=== PATIENT | male | born 2000 | race Hispanic/Latino ===

== ENCOUNTER 2020-09-08 17:47 | Emergency (ER) | payer OTHER, SELFPAY ==
[2020-09-08 17:50] VITALS: BP 137/96; PULSE 68; RESP 18; TEMP 36.3; O2SAT 99
[2020-09-08 19:40] VITALS: BP 125/87; PULSE 88; RESP 18; TEMP 36.4; O2SAT 96
--- NOTE | 2020-09-08 19:56 | ED.GENADULT ---
HPI - General Adult General Chief complaint: Unspecified Stated complaint: hard to swollow/ redness in throat x2 days Time Seen by Provider: 09/08/20 17:58 Source: patient Mode of arrival: ambulatory Limitations: no limitations History of Present Illness HPI narrative: Patient is a 19 year old male who presents complaining of sore throat and pain with swallowing x 2-3 days. He denies fever and chills, reports generalized intermittent body aches. He reports he is not Covid vaccinated. He denies known exposure to Covid but does work outside of home. He denies taking otc medications for pain or discomfort. MD complaint: sore throat Related Data Allergies Allergy/AdvReac Type Severity Reaction Status Date / Time No Known Allergies Allergy Verified 01/30/13 17:32 Review of Systems Review of Systems: Narrative: CONSTITUTIONAL: Denies fever, chills, or sweats. EYES: Denies visual changes, redness, or discharge. ENT: Reports sore throat and pain with swallowing CARDIOVASCULAR: Denies chest pain, palpitations, or edema. RESPIRATORY: Denies cough or dyspnea. GASTROINTESTINAL: Denies abdominal pain, nausea, vomiting, or diarrhea. GENITOURINARY: Denies dysuria or hematuria. SKIN: Denies rash or itching. MUSCULOSKELETAL: Denies back pain, joint pain, or myalgia. NEUROLOGIC: Denies headache, numbness, dizziness, or weakness. PSYCHIATRIC: Denies anxiety or depression. [facility] Past Medical History Medical History No significant past medical history Surgical History Surgical History No significant past surgical history Family History Family History (Updated 09/08/20 @ 20:00 by ALEX Gamino) Other No significant family history Social History Social History (Updated 09/08/20 @ 20:01 by ALEX Gamino) Smoking status: Never smoker Alcohol intake: never Substance use: never Living arrangements: with family Occupation/Education: occupation Comments At the time of signature, I have reviewed and agree with nursing past medical, surgical, social, and family history unless otherwise noted. Please see nursing chart for further information. There is no relevant family history pertinent to the presenting complaint. Exam Narrative: Exam Narrative: GENERAL: Well-appearing, well-nourished, and in no acute distress. HEAD: Normocephalic, atraumatic. EYES: EOMI. No redness or drainage. Conjunctiva are normal. ENT: Mucous membranes pink and moist. Nares clear. No rhinorrhea. TMs normal bilaterally. Throat mild erythema and edema. Uvula midline. NECK: AROM. Supple. No lymphadenopathy. CHEST: No respiratory distress. Clear to auscultation. HEART: Regular rate and rhythm. No murmur appreciated. Normal peripheral pulses. GI: Soft, nontender without rebound, or guarding. No distention. Bowel sounds normal in all quadrants. MUSCULOSKELETAL: No bony tenderness. EXTREMITIES: Normal range of motion. No edema. SKIN: Warm, dry, no rash. NEURO: No focal deficits. Alert and oriented x3. Gait steady. PSYCH: Normal affect. No signs of depression or anxiety. Course Vital Signs Vital signs: Vital Signs Temperature 36.3 C L 09/08/20 17:50 Pulse Rate 68 09/08/20 17:50 Respiratory Rate 18 09/08/20 17:50 Blood Pressure 137/96 H 09/08/20 17:50 Pulse Oximetry 99 09/08/20 17:50 Temperature 36.4 C 09/08/20 19:40 Pulse Rate 88 09/08/20 19:40 Respiratory Rate 18 09/08/20 19:40 Blood Pressure 125/87 09/08/20 19:40 Pulse Oximetry 96 09/08/20 19:40 Reviewed. Patient has been instructed to follow-up with his PCP regarding his blood pressure. Medical Decision Making MDM Narrative Medical decision making narrative: Rapid strep negative. Patient was to be checked for mono, however, he does not want to wait longer at this time. Patient also tested for Covid at this time. Patient c
[2020-09-08 22:02] LABS: Monoscreen Negative (Negative)
[2020-09-08 22:03] LABS: Negative Monotest Control Negative (Negative); Positive Monotest Control Positive (Positive)
[2020-09-09 16:57] LABS: SARS-CoV-2 RNA PCR Negative
== END 2020-09-08 21:58 | disposition home or self-care (01) ==
PROVIDERS: Emergency Provider Nurse Practitioner; PCP Registered Nurse
DX: J02.9 Acute pharyngitis, unspecified (principal); Z20.822 Contact with and (suspected) exposure to COVID-19
CPT/HCPCS: 36415; 86308; 87081; 87147; 87880; 99283; C9803; U0003; U0005

== ENCOUNTER 2020-09-10 22:14 | Emergency (ER) | payer OTHER, SELFPAY ==
[2020-09-10 22:41] VITALS: BP 129/62; PULSE 93; RESP 18; TEMP 36.9; O2SAT 99
--- NOTE | 2020-09-10 23:55 | PC.NURSE ---
Addendum entered by Beatriz Varma RN 09/11/20 00:04: throat culture resulted positive strep. Original Note: Pt to room 6 from .pt seen here 2 days ago for sore throat. arrived tonight with ems for same complaint. pt reports trouble swallowing earlier today. Presently, pt able to manage oral secretions without difficulty. no drooling. voice clear and not hoarse/muffled. a/o x 4. placed in gown, awaiting ED provider.
--- NOTE | 2020-09-11 00:35 | ED.GENADULT ---
HPI - General Adult General Chief complaint: Unspecified Stated complaint: my throat feels like it is clogging up Time Seen by Provider: 09/11/20 00:24 History of Present Illness HPI narrative: 19 yo male with no significant PMH presents to the ED for a sore throat. He reports that he has had swelling in his throat for the past few days and was initially having a significant sore throat as well. He was seen here 2 days ago and had a negative rapid strep and MONO test. He also had COVID test sent, which has since come back negative. He came back in tonight because he feels that he is having progressive difficulty swallowing. No SOB, fever, cough, chest pain. On chart review his strep culture was positive. Related Data Allergies Allergy/AdvReac Type Severity Reaction Status Date / Time No Known Allergies Allergy Verified 09/08/20 21:43 Review of Systems Review of Systems: All systems reviewed & are unremarkable except as noted in HPI and below PMFSH Past Medical History Medical History No significant past medical history Surgical History Surgical History No significant past surgical history Family History Family History Other No significant family history Social History Social History Smoking status: Never smoker Alcohol intake: never Substance use: never Exam Const: General: healthy appearing, no acute distress and alert Nutritional Appearance: obese Orientation/consciousness: patient oriented x3 HENMT: Head: normal to inspection Mouth: Yes Normal oral and palatal mucosa present Teeth and gingiva: dentition normal Throat: uvula midline, abnormal tonsil bilateral hypertrophy and posterior oropharynx abnormal erythema Neck: Neck: lymphadenopathy Resp: Effort & Inspection: normal respiratory effort Auscultation: clear to auscultation bilaterally, no rales, no rhonchi and no wheezes Other: no stridor Cardio: Jugular venous distension: no JVD Rate: regular rate Rhythm: regular rhythm Heart sounds: no murmurs Skin: General skin exam: normal color Neuro: General: patient oriented x3 and moves all extremities Speech: normal speech Extrem: General: no edema Psych: Appearance: well kempt Affect: normal affect Course Vital Signs Vital signs: Vital Signs Temperature 36.9 C 09/10/20 22:41 Pulse Rate 93 09/10/20 22:41 Respiratory Rate 18 09/10/20 22:41 Blood Pressure 129/62 09/10/20 22:41 Pulse Oximetry 99 09/10/20 22:41 Temperature 36.9 C 09/10/20 22:41 Pulse Rate 97 09/11/20 01:20 Respiratory Rate 16 09/11/20 01:20 Blood Pressure 121/80 09/11/20 01:20 Pulse Oximetry 97 09/11/20 01:20 Medical Decision Making MDM Narrative Medical decision making narrative: I will treat for strep and given steroid shot for symptom relief. He is able to swallow pills. Medical Records Medical records reviewed: Yes I reviewed the external patient's medical records. Vital Signs Vital Signs: Vital Signs Temperature 36.9 C 09/10/20 22:41 Pulse Rate 93 09/10/20 22:41 Respiratory Rate 18 09/10/20 22:41 Blood Pressure 129/62 09/10/20 22:41 Pulse Oximetry 99 09/10/20 22:41 Temperature 36.9 C 09/10/20 22:41 Pulse Rate 97 09/11/20 01:20 Respiratory Rate 16 09/11/20 01:20 Blood Pressure 121/80 09/11/20 01:20 Pulse Oximetry 97 09/11/20 01:20 Lab Data Lab results reviewed: Yes I reviewed the patient's lab results. Discharge Plan Discharge Clinical Impression: Acute streptococcal pharyngitis Patient Disposition: Home, Self-Care Condition: Stable Instructions: Antibiotic Form, Strep Throat (ED) Prescriptions: New penicillin V potassium 500 mg tablet 500 mg PO Q12H 10 Days Qty: 20 RF: 0 penici
[2020-09-11 00:36] VITALS: BP 121/84; PULSE 79; RESP 18; O2SAT 96
[2020-09-11] MEDS: PENICILLIN V POTASSIUM 250 MG TABLET 500 MG PO (00:54)
[2020-09-11] MEDS: DEXAMETHASONE SOD PHOS INJ 4 MG/ML VIAL 10 MG IM (00:56)
[2020-09-11] MEDS: KETOROLAC (*BKC) 60 MG/2 ML VIAL IM (01:02)
[2020-09-11 01:20] VITALS: BP 121/80; PULSE 97; RESP 16; O2SAT 97
== END 2020-09-11 01:20 | disposition home or self-care (01) ==
PROVIDERS: Emergency Provider Emergency Medicine; PCP Registered Nurse
DX: J02.0 Streptococcal pharyngitis (principal)
CPT/HCPCS: 96372; 99284; A9270; J1100; J1885

== ENCOUNTER 2020-10-04 02:42 | Emergency (ER) | payer OTHER, SELFPAY ==
--- NOTE | ~2020-10-04 | CT_ITS ---
EXAMINATION: CT soft tissue neck w con DATE: 10/04/2020 04:00 INDICATION: Swelling of the tonsils. Evaluate for abscess. TECHNIQUE: Computed tomography (CT) of the neck was performed with 75 mL Omnipaque-350 intravenous co ntrast. The dose-length product was 572.21 mGy-cm. Automated exposure control and iterative reconstru ction technique were employed. COMPARISON: CT dated 09/08/2017 FINDINGS: Asymmetrically enlarged left palatine tonsil with parenchymal calcification. No evidence fo r abscess. There is mild asymmetric effacement of the oropharynx. No significant surrounding inflamma tion or lymphadenopathy. Visualized intracranial structures are unremarkable. Thyroid gland is unrema rkable. Paranasal sinuses are unremarkable. Surrounding osseous structures within normal limits. Lung apices are normal. There are impacted bilateral mandibular and left posterior maxillary molars. IMPRESSION: 1. Mildly enlarged asymmetric left palatine tonsil containing parenchymal calcification. No evidence for abscess. Reviewed, dictated and finalized at location A. IMPRESSION: 1. Mildly enlarged asymmetric left palatine tonsil containing parenchymal calci fication. No evidence for abscess.
[2020-10-04 02:52] VITALS: BP 143/107; PULSE 88; RESP 18; TEMP 37.1; O2SAT 100
--- NOTE | 2020-10-04 03:05 | ED.GENADULT ---
HPI - General Adult General Chief complaint: Unspecified Stated complaint: sorethroat, getting tonsils removed next week Time Seen by Provider: 10/04/20 02:57 History of Present Illness HPI narrative: Patient 19-year-old gentleman presents emergency department with chief complaint of sore throat. The patient reports that he is scheduled to have his tonsils removed and about a week. Patient states that tonight he noticed that his tonsils felt more swollen and reports that it feels as though there is some swelling in his throat. The patient states that he has not been on steroids recently reports that he has been treated with penicillin that did not resolve his symptoms previously. Related Data Allergies Allergy/AdvReac Type Severity Reaction Status Date / Time No Known Allergies Allergy Verified 10/04/20 03:02 Review of Systems Review of Systems: Narrative: A 10 system review of systems was completed on the patient and is negative except for what is stated in the HPI. Nursing and ancillary documentation was reviewed. PMFSH Past Medical History Medical History No significant past medical history Surgical History Surgical History No significant past surgical history Family History Family History Other No significant family history Social History Social History Smoking status: Never smoker Alcohol intake: never Substance use: never Gender identity (if verbalized by the patient): Male Exam Narrative: Exam Narrative: GENERAL: Well-appearing, well-nourished, and in no acute distress. HEAD: Normocephalic, atraumatic. EYES: PERRLA and EOMI. ENT: Nares clear, no rhinorrhea or epistaxis. Mucous membranes moist. NECK: Supple. CHEST: Clear to auscultation. No respiratory distress. HEART: Regular rate and rhythm. No murmur heard. Normal peripheral pulses. ABDOMEN: Soft, nontender, nondistended, normal active bowel sounds. EXTREMITIES: Normal range of motion. No edema. SKIN: Warm, dry, no rash. NEURO: No focal deficits. Alert and oriented x3. PSYCH: Normal mood and affect. Course Vital Signs Vital signs: Vital Signs Temperature 37.1 C 10/04/20 02:52 Pulse Rate 88 10/04/20 02:52 Respiratory Rate 18 10/04/20 02:52 Blood Pressure 143/107 H 10/04/20 02:52 Pulse Oximetry 100 10/04/20 02:52 Temperature 36.7 C 10/04/20 04:12 Pulse Rate 71 10/04/20 04:12 Respiratory Rate 16 10/04/20 04:12 Blood Pressure 123/77 10/04/20 04:12 Pulse Oximetry 99 10/04/20 04:12 Medical Decision Making Vital Signs Vital Signs: Vital Signs Temperature 37.1 C 10/04/20 02:52 Pulse Rate 88 10/04/20 02:52 Respiratory Rate 18 10/04/20 02:52 Blood Pressure 143/107 H 10/04/20 02:52 Pulse Oximetry 100 10/04/20 02:52 Temperature 36.7 C 10/04/20 04:12 Pulse Rate 71 10/04/20 04:12 Respiratory Rate 16 10/04/20 04:12 Blood Pressure 123/77 10/04/20 04:12 Pulse Oximetry 99 10/04/20 04:12 Lab Data Result diagrams: 10/04/20 03:19 10/04/20 03:19 Labs: Lab Results 10/04/20 10/04/20 10/04/20 Range/Units 03:19 03:19 03:19 WBC 7.8 (4.5-10.0) K/mm3 RBC 5.54 (4.6-6.20) M/mm3 Hgb 15.5 (14.0-18.0) g/dL Hct 43.8 (42.0-52.0) % MCV 79.1 L (80-100) fl MCH 28.0 (26-34) pg MCHC 35.4 (32-36) g/dl RDW 12.5 (11.5-14.5) % Plt Count 256 (150-375) k/mm3 MPV 10.8 H (7.4-10.4) fl Immature Gran % (Auto) 0.3 (0-0.5) % Neut % (Auto) 51.8 (45.5-73.1) % Lymph % (Auto) 36.2 (18.3-44.2) % [place] % (Auto) 9.3 H (2.6-8.5) % Eos % (Auto) 1.5 (0-4.4) % Baso % (Auto) 0.9 (0.2-1.2) % Lymph # (Auto) 2.83 (0.9-3.2) K/mm3 [place] # (Aut
[2020-10-04] MEDS: SODIUM CHLORIDE 0.9% IV 1,000 ML 999 ML IV CONT (03:12)
[2020-10-04] MEDS: ONDANSETRON INJ 4 MG/2 ML VIAL IV PUSH (03:14)
[2020-10-04] MEDS: methylPREDNISolone SOD SUCC 125 MG VIAL IV PUSH (03:15)
[2020-10-04 03:30] LABS: Basophils Absolute Auto 0.1 K/mm3 (0.0-0.1); Basophils Percent Auto 0.9 % (0.2-1.2); Eosinophils Absolute Auto 0.1 K/mm3 (0-0.3); Eosinophils Percent Auto 1.5 % (0-4.4); Hematocrit 43.8 % (42.0-52.0); Hemoglobin 15.5 g/dL (14.0-18.0); Immature Granulocyte Absolute 0.02 K/mm3 (0.00-0.031); Immature Granulocyte Percent A 0.3 % (0-0.5); Lymphocytes Absolute Auto 2.83 K/mm3 (0.9-3.2); Lymphocytes Percent Auto 36.2 % (18.3-44.2); Mean Corpuscular HGB Conc 35.4 g/dl (32-36); Mean Corpuscular Volume 79.1 fl (80-100); Mean Platelet Volume 10.8 fl (7.4-10.4); Monocytes Absolute Auto 0.7 K/mm3 (0.1-0.6); Monocytes Percent Auto 9.3 % (2.6-8.5); Neutrophils Absolute Auto 4.1 K/mm3 (1.3-6.7); Neutrophils Percent Auto 51.8 % (45.5-73.1); Platelet Count Result 256 k/mm3 (150-375); Red Blood Count 5.54 M/mm3 (4.6-6.20); Red Cell Distribution Width 12.5 % (11.5-14.5); White Blood Count 7.8 K/mm3 (4.5-10.0)
[2020-10-04 03:40] LABS: Alanine Aminotransferase 46 U/L (4-50); Albumin Level 4.9 g/dL (3.5-5.1); Alkaline Phosphatase 83 U/L (38-126); Anion Gap 17 mmol/L (8-16); Aspartate Amino Transferase 45 U/L (17-59); Bilirubin,Total 1.3 mg/dL (0.2-1.3); Blood Urea Nitrogen 11 mg/dL (9-20); Calcium 10.3 mg/dL (8.4-10.2); Carbon Dioxide 22 mmol/L (22-30); Chloride 100 mmol/L (98-107); Estimated CRCL calculation 121 ml/min; Estimated Glomerular Filt Rate > 60; Glucose 86 mg/dL (75-110); Lactic Acid Reflex 1.1 mmol/L (0.7-2.1); Sodium 139 mmol/L (137-145)
[2020-10-04 04:12] VITALS: BP 123/77; PULSE 71; RESP 16; TEMP 36.7; O2SAT 99
== END 2020-10-04 05:35 | disposition home or self-care (01) ==
PROVIDERS: Emergency Provider Emergency Medicine; PCP Registered Nurse
DX: J02.9 Acute pharyngitis, unspecified (principal)
CPT/HCPCS: 36415; 70491; 80053; 83605; 85025; 96361; 96374; 96375; 99284; J2405; J2930; J7030; Q9967

== ENCOUNTER 2020-10-18 23:25 | Emergency (ER) | payer OTHER, SELFPAY ==
--- NOTE | 2020-10-18 23:27 | PC.NURSE ---
vomiting today s/p tonsils removed 1 week ago. speech clear. no s/s of acute distress. ambulatory c steady, even, unassisted gait without active vomiting on arrival.
[2020-10-18 23:53] VITALS: BP 132/81; PULSE 79; RESP 18; TEMP 36.7; O2SAT 100
--- NOTE | 2020-10-19 01:04 | ED.NAVMDI ---
HPI - Nausea/Vomiting/Diarrhea General Chief complaint: Nausea/Vomiting/Diarrhea Stated complaint: vomiting Time Seen by Provider: 10/19/20 01:03 Source: patient Mode of arrival: ambulatory Limitations: no limitations History of Present Illness HPI Narrative: Patient is a 19-year-old male complaining of nausea vomiting that started today. Patient describes his vomitus nonbilious nonbloody. Patient denies any chest pain, shortness of breath, abdominal pain, diarrhea, fever or chills. Patient states that her tonsillectomy done just this past week, currently taking hydrocodone/Tylenol for pain which she thinks could be causing his vomiting. Related Data Allergies Allergy/AdvReac Type Severity Reaction Status Date / Time Penicillins AdvReac Abdominal Verified 10/19/20 00:14 Pain Review of Systems Review of Systems: All systems reviewed & are unremarkable except as noted in HPI and below Constitutional: Constitutional: Denies body ache(s), Denies chills, Denies excessive sweating, Denies fatigue, Denies fever(s), Denies headache(s), Denies lethargy, Denies malaise, Denies weakness and Denies weight loss Eyes: Eyes: Denies blurry vision, Denies change in vision and Denies loss of vision ENT: Denies dizziness, Denies ear discharge, Denies headache(s), Denies lip swelling, Denies epistaxis, Denies nasal congestion, Denies neck pain, Denies throat swelling and Denies tongue swelling Cardiovascular: Cardiovascular: Denies chest pain, Denies chest pain at rest, Denies chest pain with activity, Denies diaphoresis, Denies rapid heart rate, Denies edema, Denies irregular heart rhythm, Denies lightheadedness, Denies palpitations, Denies dyspnea and Denies dyspnea on exertion Respiratory: Respiratory: Denies chest congestion, Denies cough, Denies hemoptysis, Denies dyspnea and Denies dyspnea on exertion Gastrointestinal: Gastrointestinal: Denies abdominal pain, Denies melena, Denies hematochezia, Denies diarrhea and Denies hematemesis Musculoskeletal: Musculoskeletal: Denies abnormal gait, Denies deformity, Denies joint swelling, Denies limited range of motion, Denies neck pain and Denies numbness Neurologic: Denies Abnormal speech present, Denies abnormal gait, Denies confusion, Denies dizziness, Denies headache(s), Denies focal weakness, Denies loss of vision, Denies numbness, Denies Other visual disturbances, Denies Sensory deficit (Neuro) and Denies weakness Psychiatric: Psychiatric: Denies confusion, Denies depression, Denies auditory hallucinations, Denies homicidal ideation and Denies suicidal ideation Endocrine: Endocrine: Denies cold intolerance, Denies excessive sweating, Denies fatigue, Denies heat intolerance and Denies palpitations Hematologic/Lymphatic: Hematologic/Lymphatic: Denies easy bleeding and Denies easy bruising Allergic/Immunologic: Allergic/Immunologic: Denies lip swelling, Denies throat swelling and Denies tongue swelling PMFSH Past Medical History Medical History No significant past medical history Surgical History Surgical History No significant past surgical history Family History Family History Other No significant family history Social History Social History Smoking status: Never smoker Alcohol intake: never Substance use: never Gender identity (if verbalized by the patient): Male Exam Const: General: cooperative, healthy appearing, comfortable, no acute distress, well developed, alert and awake; No confusion Orientation/consciousness: oriented to person, oriented to place, oriented to time, patient oriented x3 and No confusion Limitations: no limitations HENMT: Head: normal to inspection, normocephalic and atraumatic Ears: hearing grossly normal bilaterally, TM n
[2020-10-19 01:05] VITALS: BP 126/75; PULSE 69
[2020-10-19 01:07] VITALS: BP 121/78; PULSE 72
[2020-10-19 01:08] VITALS: BP 110/79; PULSE 67
[2020-10-19 01:16] VITALS: BP 131/83; PULSE 86; O2SAT 96
[2020-10-19 01:25] LABS: Basophils Absolute Auto 0.1 K/mm3 (0.0-0.1); Basophils Percent Auto 0.5 % (0.2-1.2); Eosinophils Absolute Auto 0.1 K/mm3 (0-0.3); Hematocrit 44.1 % (42.0-52.0); Hemoglobin 15.1 g/dL (14.0-18.0); Immature Granulocyte Absolute 0.03 K/mm3 (0.00-0.031); Immature Granulocyte Percent A 0.3 % (0-0.5); Lymphocytes Absolute Auto 1.77 K/mm3 (0.9-3.2); Lymphocytes Percent Auto 17.6 % (18.3-44.2); Mean Corpuscular HGB Conc 34.2 g/dl (32-36); Mean Corpuscular Hemoglobin 27.8 pg (26-34); Mean Corpuscular Volume 81.2 fl (80-100); Mean Platelet Volume 10.2 fl (7.4-10.4); Monocytes Absolute Auto 0.7 K/mm3 (0.1-0.6); Neutrophils Absolute Auto 7.4 K/mm3 (1.3-6.7); Neutrophils Percent Auto 73.6 % (45.5-73.1); Platelet Count Result 320 k/mm3 (150-375); Red Blood Count 5.43 M/mm3 (4.6-6.20); Red Cell Distribution Width 13.2 % (11.5-14.5); White Blood Count 10.1 K/mm3 (4.5-10.0)
[2020-10-19 01:28] LABS: Alanine Aminotransferase 169 U/L (4-50); Albumin Level 4.6 g/dL (3.5-5.1); Alkaline Phosphatase 149 U/L (38-126); Anion Gap 12 mmol/L (8-16); Aspartate Amino Transferase 107 U/L (17-59); Bilirubin,Total 0.8 mg/dL (0.2-1.3); Blood Urea Nitrogen 12 mg/dL (9-20); Calcium 10.1 mg/dL (8.4-10.2); Carbon Dioxide 31 mmol/L (22-30); Chloride 99 mmol/L (98-107); Estimated CRCL calculation 144 ml/min; Estimated Glomerular Filt Rate > 60; Glucose 104 mg/dL (75-110); Lipase 118 U/L (23-300); Potassium 3.1 mmol/L (3.4-5.0); Sodium 142 mmol/L (137-145)
[2020-10-19 01:29] LABS: Add Urine Microscopic? YES; Appearance Urine Clear (Clear); Bacteria Urine Trace /hpf; Bilirubin Urine 1+ (Negative); Blood Urine Negative (Negative); Color Urine Amber (Yellow); Glucose Urine UA Negative (Negative); Ketones Urine 2+ mg/dL (Negative); Leukocyte Esterase Ur Negative LEU/UL (Negative); Mucus Urine Heavy /lpf; Nitrate Urine Negative (Negative); Protein Urine 2+ mg/dL (Negative); RBC Urine 0-2 /hpf (0-2)
[2020-10-19] MEDS: PROMETHAZINE HCL 25 MG/ML AMPUL 12.5 MG IV PUSH (01:39)
[2020-10-19] MEDS: SODIUM CHLORIDE 0.9% IV 1,000 ML 999 ML IV CONT (01:39)
[2020-10-19 01:46] VITALS: BP 131/74; PULSE 72; O2SAT 98
[2020-10-19] MEDS: POTASSIUM CHLORIDE 20 MEQ PACKET (FOR LIQUID) PO (01:56)
--- NOTE | 2020-10-19 02:06 | PC.NURSE ---
Potassium Chloride with Dextrose 5% in water not administered per verbal read back order from Dr. Michaels.
[2020-10-19 02:43] VITALS: BP 123/79; PULSE 82; RESP 18; O2SAT 99
== END 2020-10-19 02:46 | disposition home or self-care (01) ==
PROVIDERS: Emergency Provider Emergency Medicine; PCP Registered Nurse
DX: E87.6 Hypokalemia (principal); R11.2 Nausea with vomiting, unspecified
CPT/HCPCS: 36415; 80053; 81001; 83690; 85025; 87086; 96361; 96374; 99284; A9270; J2550; J7030

== ENCOUNTER 2020-10-23 04:36 | Emergency (ER) | payer OTHER, SELFPAY ==
[2020-10-23 04:41] VITALS: BP 136/102; PULSE 101; RESP 16; TEMP 36.8; O2SAT 100
--- NOTE | 2020-10-23 04:55 | ED.GENADULT ---
HPI - General Adult General Chief complaint: Unspecified Stated complaint: bleeding after tonsilectomy Time Seen by Provider: 10/23/20 04:45 History of Present Illness HPI narrative: Patient is a 19-year-old male who presents ER with post tonsillectomy bleeding. Had tonsillectomy performed on 10/13/2020 at [facility] with Dr. Mckeon. Had bleeding 2 days ago, seen in the ER there and given viscous lidocaine and discharged. Has not been taking any anti-inflammatory medications. No fevers chills or sweats. Sudden onset bleeding at 420 this morning. Related Data Allergies Allergy/AdvReac Type Severity Reaction Status Date / Time Penicillins AdvReac Abdominal Verified 10/23/20 04:37 Pain Review of Systems Review of Systems: All systems reviewed & are unremarkable except as noted in HPI and below Constitutional: Constitutional: Denies chills and Denies fever(s) ENT: Denies nasal congestion Comments: Bleeding from tonsils Respiratory: Respiratory: Denies cough and Denies dyspnea PMFSH Past Medical History Medical History (Updated 10/23/20 @ 05:45 by Arslan Avery MD) No significant past medical history Surgical History Surgical History (Updated 10/23/20 @ 05:17 by Arslan Avery MD) History of tonsillectomy Family History Family History Other No significant family history Social History Social History Smoking status: Never smoker Alcohol intake: never Substance use: never Gender identity (if verbalized by the patient): Male Exam Narrative: Exam Narrative: GENERAL: Well-appearing, well-nourished, and in no acute distress. HEAD: Normocephalic, atraumatic. ENT: Mucous membranes moist. Evidence of bleeding in the posterior oropharynx. Small amount of blood to right tonsil but larger hematoma development to the left tonsil. NECK: Supple. CHEST: Clear to auscultation. No respiratory distress. HEART: Regular rate and rhythm. Normal peripheral pulses. EXTREMITIES: Normal range of motion. No edema. NEURO: Alert and oriented x3. PSYCH: Normal mood and affect. Course Course Emergency Course: Contacted patient's ENT who recommended patient go to [facility]. After speaking with Dr. Alvarez who declined to accept and feels its most pertinent for routine post op complications to be managed by primary surgeon. Dr. Mckeon contacted again, accepts pt to [facility]. Dr. Nayak in the ER accepts to the ER. Pt stable, no active hemorrhage at this time. Pt NPO. Vital Signs Vital signs: Vital Signs Temperature 98.2 F 10/23/20 04:41 Pulse Rate 101 H 10/23/20 04:41 Respiratory Rate 16 10/23/20 04:41 Blood Pressure 136/102 H 10/23/20 04:41 Pulse Oximetry 100 10/23/20 04:41 Temperature 98.2 F 10/23/20 04:41 Pulse Rate 101 H 10/23/20 04:41 Respiratory Rate 16 10/23/20 04:41 Blood Pressure 136/102 H 10/23/20 04:41 Pulse Oximetry 100 10/23/20 04:41 Medical Decision Making Vital Signs Vital Signs: Vital Signs Temperature 98.2 F 10/23/20 04:41 Pulse Rate 101 H 10/23/20 04:41 Respiratory Rate 16 10/23/20 04:41 Blood Pressure 136/102 H 10/23/20 04:41 Pulse Oximetry 100 10/23/20 04:41 Temperature 98.2 F 10/23/20 04:41 Pulse Rate 101 H 10/23/20 04:41 Respiratory Rate 16 10/23/20 04:41 Blood Pressure 136/102 H 10/23/20 04:41 Pulse Oximetry 100 10/23/20 04:41 Discharge Plan Discharge Clinical Impression: Post-tonsillectomy hemorrhage Patient Disposition: Acute Care Hospital Condition: Stable Prescriptions: No Action ondansetron HCl [Zofran] 4 mg tablet 4 mg PO Q8H PRN (Reason: nausea and vomiting) Qty: 10 RF: 0 Follow-up/Referrals: Boo,GENNARO Ricketts [Primary Care Provider] -
[2020-10-23 05:58] VITALS: BP 148/76; PULSE 100; RESP 16; TEMP 36.8; O2SAT 99
== END 2020-10-23 06:00 | disposition short-term general hospital (02) ==
PROVIDERS: Emergency Provider Emergency Medicine; PCP Registered Nurse
DX: K91.840 Postprocedural hemorrhage of a digestive system organ or structure following a digestive system procedure (principal)
CPT/HCPCS: 99282